=== PATIENT | female | born 1935 | race Asian ===

== ENCOUNTER 2016-10-19 15:45 | Emergency (ER) | payer MEDICARE, MEDICAID ==
[~2016-10-19] VITALS: Ht 147.3 cm; Wt 61.2 kg
[2016-10-19 16:41] LABS: BASOPHIL % 0.2 % (0-2); PLATELET COUNT 274 x10^3mcL (130-400); RED CELL DISTRIBUTION WIDTH 13.1 % (11.5-14.5)
[2016-10-19 16:53] LABS: CALCIUM 9.2 mg/dL (8.5-10.1); CARBON DIOXIDE 31.9 mmol/L (21-32); CHLORIDE SERUM 102 mmol/L (98-107); CREATININE SERUM 1.6 mg/dL (0.6-1.0); GLUCOSE SERUM 95 mg/dL (74-106); POTASSIUM SERUM 3.8 mmol/L (3.5-5.1); SODIUM SERUM 138 mmol/L (136-145)
[2016-10-19 17:00] LABS: ALBUMIN 3.7 g/dL (3.4-5.0); ALKALINE PHOSPHATASE 79 U/L (46-116); ALT/SGPT 20 U/L (14-59); AST/SGOT 14 U/L (15-37); BILIRUBIN TOTAL 0.4 mg/dL (0.20-1.00); TOTAL PROTEIN, SERUM 7.4 g/dL (6.4-8.2)
[2016-10-19 17:05] LABS: CHOLESTEROL 224 mg/dL (<200)
[2016-10-19 20:29] VITALS: BP 142/64
== END 2016-10-19 20:29 | disposition home or self-care (01) ==
LOC: ED 15:45
PROVIDERS: Specialist
DX: R51 Headache (principal); I10 Essential (primary) hypertension; N28.9 Disorder of kidney and ureter, unspecified; E78.5 Hyperlipidemia, unspecified; M19.90 Unspecified osteoarthritis, unspecified site
CPT/HCPCS: 83880; G0480; J1885

== ENCOUNTER 2016-12-09 01:52 | Inpatient (IN) | payer MEDICARE, MEDICAID ==
[~2016-12-09] VITALS: Ht 147.3 cm; Wt 61.3 kg
[2016-12-09 02:46] LABS: CALCIUM 9.2 mg/dL (8.5-10.1); CARBON DIOXIDE 28.3 mmol/L (21-32); CHLORIDE SERUM 96 mmol/L (98-107); CREATININE SERUM 1.1 mg/dL (0.6-1.0); GLUCOSE SERUM 204 mg/dL (74-106); POTASSIUM SERUM 4.3 mmol/L (3.5-5.1); SODIUM SERUM 131 mmol/L (136-145)
[2016-12-09 02:48] LABS: PLATELET COUNT 291 x10^3mcL (130-400); RED CELL DISTRIBUTION WIDTH 12.1 % (11.5-14.5)
[2016-12-09 02:50] LABS: BASOPHIL % 4.5 % (0-2)
[2016-12-09 02:51] LABS: ALBUMIN 3.5 g/dL (3.4-5.0); ALKALINE PHOSPHATASE 64 U/L (46-116); ALT/SGPT 18 U/L (14-59); AST/SGOT 18 U/L (15-37); BILIRUBIN TOTAL 0.49 mg/dL (0.20-1.00); TOTAL PROTEIN, SERUM 7.2 g/dL (6.4-8.2)
[2016-12-09] MEDS ORDERED: CATAPRES0.1 MG PO (03:16)
[2016-12-09] MEDS ORDERED: GLUCOTROL5 MG PO (03:18)
[2016-12-09] MEDS ORDERED: ASPIR 8181 MG PO (03:19)
[2016-12-09] MEDS ORDERED: ZESTRIL5 MG PO (03:20)
[2016-12-09] MEDS ORDERED: LEXAPRO10 MG PO (03:21)
[2016-12-09] MEDS ORDERED: PEPCID20 MG PO (03:22)
[2016-12-09] MEDS ORDERED: ZOCOR40 MG PO (03:23)
[2016-12-09 04:34] LABS: MAGNESIUM 2.3 mg/dL (1.8-2.4); PHOSPHOROUS 3.2 mg/dL (2.5-4.9)
[2016-12-09 04:36] LABS: CHOLESTEROL/HDL RATIO 2.5
[2016-12-09 04:42] LABS: FREE T4 0.98 ng/dL (0.76-1.46); FREE THYROXINE INDEX 2.3 ug/dL (1.4-4.5); T3 TOTAL 0.89 ng/mL; T4(THYROXINE) 6.9 ug/dL (4.7-13.3)
[2016-12-09 05:05] VITALS: BP 140/58
[2016-12-09 05:38] VITALS: BP 140/58
[2016-12-09 09:15] VITALS: BP 138/60
[2016-12-09 14:04] VITALS: BP 123/54
[2016-12-09 17:09] VITALS: BP 112/61
[2016-12-09 21:30] VITALS: BP 156/57
[2016-12-10 06:17] LABS: BASOPHIL % 0.4 % (0-2); PLATELET COUNT 259 x10^3mcL (130-400)
[2016-12-10 06:28] LABS: CALCIUM 8.8 mg/dL (8.5-10.1); CARBON DIOXIDE 24.7 mmol/L (21-32); CHLORIDE SERUM 99 mmol/L (98-107); GLUCOSE SERUM 69 mg/dL (74-106); MAGNESIUM 2.3 mg/dL (1.8-2.4); PHOSPHOROUS 3.9 mg/dL (2.5-4.9); POTASSIUM SERUM 3.8 mmol/L (3.5-5.1); SODIUM SERUM 134 mmol/L (136-145)
[2016-12-10 07:00] VITALS: BP 190/67
[2016-12-10 09:00] VITALS: BP 191/77
[2016-12-10 11:38] VITALS: BP 135/72
[2016-12-10 13:34] VITALS: BP 180/67
[2016-12-10 17:14] VITALS: BP 98/65
[2016-12-10 21:00] VITALS: BP 135/70
[2016-12-11 05:45] VITALS: BP 165/70
[2016-12-11 06:27] LABS: CALCIUM 9.7 mg/dL (8.5-10.1); CARBON DIOXIDE 29.4 mmol/L (21-32); CHLORIDE SERUM 95 mmol/L (98-107); CREATININE SERUM 0.9 mg/dL (0.6-1.0); GLUCOSE SERUM 99 mg/dL (74-106); POTASSIUM SERUM 3.3 mmol/L (3.5-5.1); SODIUM SERUM 134 mmol/L (136-145)
[2016-12-11 10:21] VITALS: BP 148/97
[2016-12-11 14:38] VITALS: BP 107/68
[2016-12-11 21:00] VITALS: BP 164/70
[2016-12-12 00:01] VITALS: BP 154/68
[2016-12-12 06:15] LABS: BASOPHIL % 0.5 % (0-2); PLATELET COUNT 262 x10^3mcL (130-400); RED CELL DISTRIBUTION WIDTH 12.7 % (11.5-14.5)
[2016-12-12 06:28] LABS: CALCIUM 9.3 mg/dL (8.5-10.1); CARBON DIOXIDE 27.7 mmol/L (21-32); CHLORIDE SERUM 95 mmol/L (98-107); CREATININE SERUM 1.1 mg/dL (0.6-1.0); GLUCOSE SERUM 88 mg/dL (74-106); MAGNESIUM 2.1 mg/dL (1.8-2.4); PHOSPHOROUS 3.1 mg/dL (2.5-4.9); POTASSIUM SERUM 4.7 mmol/L (3.5-5.1); SODIUM SERUM 128 mmol/L (136-145)
[2016-12-12 06:54] VITALS: BP 119/80
[2016-12-12 10:54] VITALS: BP 152/73; BP 176/84
[2016-12-12 16:57] LABS: CALCIUM 9.5 mg/dL (8.5-10.1); CARBON DIOXIDE 29.5 mmol/L (21-32); CHLORIDE SERUM 92 mmol/L (98-107); CREATININE SERUM 1.3 mg/dL (0.6-1.0); GLUCOSE SERUM 179 mg/dL (74-106); POTASSIUM SERUM 4.2 mmol/L (3.5-5.1); SODIUM SERUM 128 mmol/L (136-145)
[2016-12-12 17:54] VITALS: BP 147/82
[2016-12-12 22:49] VITALS: BP 159/86
[2016-12-13 05:54] VITALS: BP 162/69
[2016-12-13 06:24] LABS: CALCIUM 9.3 mg/dL (8.5-10.1); CHLORIDE SERUM 98 mmol/L (98-107); CREATININE SERUM 1.1 mg/dL (0.6-1.0); GLUCOSE SERUM 66 mg/dL (74-106); POTASSIUM SERUM 4.2 mmol/L (3.5-5.1); SODIUM SERUM 134 mmol/L (136-145)
[2016-12-13 09:38] VITALS: BP 164/75
[2016-12-13] MEDS ORDERED: ZES20 PO (11:20)
[2016-12-13] MEDS ORDERED: QUETIAPINE FUMA25 M1 PO (11:21)
[2016-12-13] MEDS ORDERED: LIPI20 PO (11:21)
[2016-12-13] MEDS ORDERED: NOR10 PO (11:21)
[2016-12-13] MEDS ORDERED: MEMANTINE HCL10 MG PO (11:22)
[2016-12-13] MEDS ORDERED: GLU10 PO (11:22)
[2016-12-13] MEDS ORDERED: THERA TABS1 TAB PO (11:22)
[2016-12-13 12:40] VITALS: BP 164/75
== END 2016-12-13 15:30 | disposition home or self-care (01) | DRG 56 ==
LOC: ED 01:52 → MU 03:23 → DU 03:23 → MU 12-11 22:02
PROVIDERS: Emergency Medicine; ADMIT Family Medicine
DX: G30.9 Alzheimer's disease, unspecified (principal); N17.0 Acute kidney failure with tubular necrosis; G93.41 Metabolic encephalopathy; I16.1 Hypertensive emergency; E87.1 Hypo-osmolality and hyponatremia; F02.81 Dementia in other diseases classified elsewhere, unspecified severity, with behavioral disturbance; D68.69 Other thrombophilia; I11.9 Hypertensive heart disease without heart failure; E87.6 Hypokalemia; E11.51 Type 2 diabetes mellitus with diabetic peripheral angiopathy without gangrene; E11.65 Type 2 diabetes mellitus with hyperglycemia; K21.9 Gastro-esophageal reflux disease without esophagitis; F32.9 Major depressive disorder, single episode, unspecified; E86.0 Dehydration; F41.9 Anxiety disorder, unspecified; E87.8 Other disorders of electrolyte and fluid balance, not elsewhere classified; R00.1 Bradycardia, unspecified; D64.9 Anemia, unspecified; H40.9 Unspecified glaucoma; Z79.82 Long term (current) use of aspirin; Z68.30 Body mass index [BMI] 30.0-30.9, adult; Z79.84 Long term (current) use of oral hypoglycemic drugs; Z91.14 Patient's other noncompliance with medication regimen
CPT/HCPCS: 82962; 83880; 84439; J0360; J1940; J2060; J7030; J8597; Q0092

== ENCOUNTER → 2017-01-08 | Outpatient (CLI) | payer OTHER, MEDICAID ==
[~2017-01-08] MED LIST: ASPIR 8181 MG PO; CATAPRES0.1 MG PO; GLU10 PO; GLUCOTROL5 MG PO; LEXAPRO10 MG PO; LIPI20 PO; MEMANTINE HCL10 MG PO; NOR10 PO; PEPCID20 MG PO; QUETIAPINE FUMA25 M1 PO; THERA TABS1 TAB PO; ZES20 PO; ZESTRIL5 MG PO; ZOCOR40 MG PO
== END | disposition home or self-care (01) ==
LOC: RD 16:51
DX: M54.2 Cervicalgia (principal)